=== PATIENT | male | born 1990 | race Two or more races ===

== ENCOUNTER 2021-07-24 16:08 | Emergency (ER) | payer OTHER ==
[~2021-07-24] VITALS: Ht 165.1 cm; Wt 63.5 kg
--- NOTE | 2021-07-24 16:20 | NUR ---
DAISY CHEF SAUCIER AT BEDSIDE
--- NOTE | 2021-07-24 16:38 | NUR ---
[id number], C/O SUICIDAL IDEATION AFTER SMOKING METH, PT DISCHARGED FROM [facility] TODAY. TO ER BED 18. HOOKED TO MONITOR, CHANGED TO HOSP GOWN, WARM BLANKET PROVIDED. PATIENT AAO x 4. SUICIDAL PRECAUTIONS APPLIED. SITTER AT BEDSIDE.
[2021-07-24 16:48] LABS: BASOPHILS % (AUTO) 0.4 % (0.0-2.0); EOSINOPHILS % (AUTO) 0.4 % (0.0-6.0); HEMATOCRIT 40 % (39-51); HEMOGLOBIN 13.6 g/dL (13.5-17.5); LYMPHOCYTES # (AUTO) 1.3 K/uL (0.8-4.8); LYMPHOCYTES % (AUTO) 12.8 % (20.0-44.0); MEAN CORPUSCULAR HGB CONC 34 g/dl (31.0-36.0); MEAN CORPUSCULAR VOLUME 88 fL (80-96); MONOCYTES # (AUTO) 0.6 K/uL (0.1-1.30); MONOCYTES % (AUTO) 5.5 % (2.0-12.0); NEUTROPHILS # (AUTO) 8.2 K/uL (1.8-8.9); NEUTROPHILS % (AUTO) 80.9 % (43.0-81.0); PLATELET COUNT (AUTO) 459 K/uL (150-450); RED BLOOD CELL COUNT(AUTO) 4.61 MIL/uL (4.5-6.0); WHITE BLOOD COUNT (AUTO) 10.2 K/uL (4.3-11.0)
[2021-07-24 17:33] LABS: CARBON DIOXIDE 29 mmol/L (21-32); CHLORIDE 103 mmol/L (98-107); CREATININE 0.8 mg/dL (0.6-1.3); GLUCOSE 84 mg/dL (74-106); POTASSIUM 3.5 mmol/L (3.5-5.1); SODIUM SERUM 140 mmol/L (136-145); UREA NITROGEN, BLOOD 13 mg/dL (7-18)
[2021-07-24 17:38] LABS: ALANINE AMINOTRANSFERASE 28 U/L (12-78); ALBUMIN 3.9 g/dL (3.4-5.0); ALCOHOL, BLOOD < 3 mg/dL (0-0); ALKALINE PHOSPHATASE 136 U/L (46-116); ASPARTATE AMINOTRANSFERASE 22 U/L (15-37); BILIRUBIN,TOTAL 0.1 mg/dL (0.2-1.0); TOTAL PROTEIN, SERUM 8.1 g/dL (6.4-8.2)
[2021-07-24 17:40] LABS: ACETAMINOPHEN 0 ug/ml (10-30)
[2021-07-24 19:20] LABS: BILIRUBIN,URINE NEGATIVE (NEGATIVE); COLOR,URINE YELLOW (YELLOW); LEUKOCYTE ESTERASE ,URINE NEGATIVE (NEGATIVE); NITRITE, URINE NEGATIVE (NEGATIVE); PROTEIN,URINE TRACE mg/dl (NEGATIVE); UGLUCOSE NEGATIVE (NEGATIVE); UROBILINOGEN,URINE 0.2 EU/dL (0.2)
[2021-07-24 19:35] VITALS: BP 145/88
[2021-07-24 19:52] LABS: BACTERIA,URINE Few /HPF (None Seen); CALCIUM OXALATE CRYSTALS,UR Moderate /HPF (None Seen); SQUAMOUS EPITHELIAL CELL,UR Rare /HPF (None Seen); WBC,URINE 0-2 /HPF (0-3)
--- NOTE | 2021-07-24 22:44 | NUR ---
Siomara ruth in EDM - 07/24/21 at 2325 by ANGELA PATIENT STATES THAT HE IS FEELING MUCH BETTER AND NO LONGER WISHES TO STAY IN ER. PT DENIES SI/HI. [employer] NOTIFIED.
--- NOTE | 2021-07-24 23:25 | NUR ---
FACESHEET AND CLINICALS FAXED TO [facility].
--- NOTE | 2021-07-25 04:30 | NUR ---
PT STATES THAT HE IS NO LONGER SUICIDAL AND WOULD LIKE TO GO HOME. PT STATES HE WILL FOLLOW UP WITH A DRUG REHAB. PT DENIES SI/HI. DR BRISCOE NOTIFIED.
--- NOTE | 2021-07-25 04:35 | NUR ---
PT DOES NOT WISH TO WAIT FOR DISCHARGE. PT ELOPED FROM ER.
== END 2021-07-25 05:59 | disposition left against medical advice (07) ==
LOC: ER 16:14
DX: R45.851 Suicidal ideations (principal); F15.10 Other stimulant abuse, uncomplicated; Z53.20 Procedure and treatment not carried out because of patient's decision for unspecified reasons; Z59.00 Homelessness unspecified; F19.10 Other psychoactive substance abuse, uncomplicated; Z86.59 Personal history of other mental and behavioral disorders
CPT/HCPCS: 36415; 80048; 80076; 80143; 80307; 80320; 81001; 85025; 87426; 99285; C9803; G0480